=== PATIENT | female | born 1960 | race Caucasian/White ===

== ENCOUNTER → 2020-08-02 09:41 | Outpatient (CLI) | payer OTHER, SELFPAY ==
--- NOTE | 2020-08-02 | DI.US.S_ITS ---
PROCEDURE: US PELVIC COMPLETE INDICATIONS: POSTMENOPAUSAL BLEEDING TECHNIQUE: Real-time scanning was performed of the pelvic organs, with image documentation. Additional endovaginal scanning was necessary due to incomplete visualization of the adnexal and endometrial structures by transabdominal scanning. COMPARISON: None. FINDINGS: Transabdominal scanning: Limited scanning through the kidneys shows no hydronephrosis. No pathologic free abdominal or pelvic fluid. Endovaginal scanning: Uterus: Uterus is normal in size at 4.7 x 5.0 x 9.5 cm, retroverted. The endometrium measures 8.1 mm in combined thickness. Ovaries: Right over for ectomy approximately 20 years ago, left ovary appears normal measuring 2.1 x 2.0 x 23.7 cm. IMPRESSION: Prior right oophorectomy. Normal appearing uterus and endometrial lining, normal-appearing left ovary. Dictated by: Maurizio Olivarez M.D. on 08/02/2020 at 13:05 Approved by: Maurizio Olivarez M.D. on 08/02/2020 at 13:06
== END ==
PROVIDERS: PCP Student in an Organized Health Care Education/Training Program; Referring Provider Student in an Organized Health Care Education/Training Program; Visit Provider Student in an Organized Health Care Education/Training Program
DX: N95.0 Postmenopausal bleeding (principal); Z90.721 Acquired absence of ovaries, unilateral
CPT/HCPCS: 76856

== ENCOUNTER → 2020-12-26 16:17 | Outpatient (CLI) | payer OTHER, SELFPAY ==
[2020-12-26] MEDS: COVID-19 VACC #1, MRNA(MOD) 100 MCG/0.5 ML VIAL IM (16:22)
== END ==
PROVIDERS: PCP Student in an Organized Health Care Education/Training Program; Visit Provider Internal Medicine
DX: Z23 Encounter for immunization (principal)
CPT/HCPCS: 0011A; 91301

== ENCOUNTER → 2021-01-24 15:04 | Outpatient (CLI) | payer OTHER, SELFPAY ==
[2021-01-24] MEDS: COVID-19 VACC #2, MRNA(MOD) 100 MCG/0.5 ML VIAL IM (15:10)
== END ==
PROVIDERS: PCP Student in an Organized Health Care Education/Training Program; Visit Provider Internal Medicine
DX: Z23 Encounter for immunization (principal)
CPT/HCPCS: 0012A; 91301

== ENCOUNTER 2023-07-15 16:05 | Emergency (ER) | payer OTHER, SELFPAY ==
[2023-07-15] VITALS (73 sets, daily range): BP systolic 104–173; BP diastolic 55–100; PULSE 72–109; RESP 8–45; TEMP 36.5; O2SAT 92–100
--- NOTE | 2023-07-15 16:16 | DI.RAD.S_ITS ---
PROCEDURE: XR ANKLE LT 2V INDICATIONS: fall, gross deformity, left ankle TECHNIQUE: 3 views of the ankle were acquired. COMPARISON: None. FINDINGS: Bones: Comminuted fractures in the distal tibia and fibula. Medial malleolar fracture with medial/anterior subluxation of the tibia over the dome of the talus by almost 1 bone diameter. Vertical posterior tibial metaphyseal fracture as well as oblique distal fibular fracture Soft tissues: No tibiotalar joint effusion. Achilles tendon appears normal. IMPRESSION: Comminuted trimalleolar fracture dislocation with complete ankle mortise disruption Approved by: Suhail Cunningham M.D. on 07/15/2023 at 17:29
--- NOTE | 2023-07-15 16:42 | ED.LOWEXIN ---
HPI - Extremity Injury (Lower) General Chief Complaint: Extremity Injury, Lower Stated Complaint: Fall Time Seen by Provider: 07/15/23 16:39 Source: patient and EMS Mode of arrival: EMS History of Present Illness HPI Narrative: 63-year-old female presents for ankle injury. Patient was hiking when she slipped and fell. Gross deformity noted, palpable pedal pulses, intact sensation. Patient denies hitting her head, denies loss of consciousness, denies use of blood thinners. Related Data Home Medications Medication Instructions Recorded Confirmed cholecalciferol (vitamin D3) 25 1,000 unit PO QDAY #0 tabs 04/16/16 mcg (1,000 unit) tablet (Vitamin D3) [VEGAN OMEGA 3] PO QDAY ##0 05/13/17 Previous Rx's Medication Instructions Recorded bupropion HCl 200 mg tablet,12 hr 200 mg PO BID #60 tabs 05/13/17 sustained-release gabapentin 300 mg capsule 300 mg PO TID #30 caps 07/15/23 methocarbamol 500 mg tablet 500 mg PO QID #30 tabs 07/15/23 oxycodone-acetaminophen 5 mg-325 1 tab PO Q4H PRN pain #20 tabs 07/15/23 mg tablet (Percocet) Allergies Allergy/AdvReac Type Severity Reaction Status Date / Time duloxetine [DULOXETINE] AdvReac Intermediate Caused Verified 07/15/23 18:41 anxiety and paranoia Review of Systems Review of Systems Narrative: Negative except as noted above Patient History Surgical History (Updated 01/19/18 @ 05:02 by Mirta Cole PA-C) History of bilateral salpingo-oophorectomy (BSO) Status post cholecystectomy Family History (Updated 05/16/17 @ 00:00 by Conversion Provider) Brother Mental health problem Mother Age: 96 Type 2 diabetes mellitus Hypothyroidism Hypertension Sleep apnea Social History Smoking Status: Never smoker Smoking Status: Never smoker alcohol intake frequency: 0-2 drinks per day Substance Use Type: does not use Exam Initial Vital Signs Initial Vital Signs: Vital Signs Temperature 97.7 F 07/15/23 16:12 Pulse Rate 72 07/15/23 16:12 Respiratory Rate 14 07/15/23 16:12 Blood Pressure 137/100 H 07/15/23 16:12 Pulse Oximetry 99 07/15/23 16:12 Oxygen Delivery Method Room Air 07/15/23 16:12 Const: Awake, alert, no acute distress, nontoxic appearing Eyes: PERRL, EOMI, conjunctiva normal ENT: Atraumatic, dentition normal, mucous membranes moist Cardiac: regular rate, regular rhythm RESP: unlabored, clear bilaterally, no wheezing GI: Atraumatic, soft, nontender, nondistended, no rebound, no guarding MSK: Gross deformity left ankle, able to wiggle toes, sensation intact, DP pulses palpable Skin: Warm, Dry, intact, no rashes Neuro: AO x3, CN II-XII grossly intact, moves all extremities Psych: affect normal, mood normal, not suicidal, not homicidal Procedures Orthopedic Fracture Reduction Fracture #1: Side: left Fracture Reduction Location: other (ankle) Technique: direct manipulation and traction/counter-traction Post Reduction X-rays Demonstrate: anatomical reduction Post-reduction neuro exam: intact Post-reduction vascular exam: intact Splint Applied: Yes Patient Tolerated Procedure: Well Orthopedic Joint Reduction Joint #1: Time Out Performed: Yes Side: left Joint Reduction Location: ankle Analgesia: procedural sedation Post-reduction neuro exam: intact Post-reduction vascular: intact Post Reduction X-Ray Obtained: Yes Post Reduction X-Ray Results: reduced Splint Applied: Yes Patient Tolerated Procedure: Well and No complications Procedural Sedation Consent signed: Yes Time out performed: Yes Indication: fracture/dislocation reduction ASA Class: II Mallampati Airway Classification: Class III Time of Last PO Intake: 12:00 Preparation: monitoring analyst applied, pulse oximeter, supplemental O2 applied, suction/airway equipment at bedside and IV secured Ketamine: IV Ketamine dose (mg): 150 ED Sedation Level: Moderate (Concious) Patient Tolerated Procedure: Well Complications: Respiratory Depression-Repositioning Required Interventions: Airway repositioned and Assist by BVM Additional Comments: Tolerated procedure well Course Orders Ordered: Discontinued Medications Sodium Chloride (Normal Saline 0.9%) 1,000 mls @ 1,000 mls/hr IV BOLUS ONE Stop: 07/15/23 17:39 Last Infusion: 07/15/23 18:42 Dose: Infused Documented By: Admin: 07/15/23 17:20 Dose: 1,000 mls/hr Documented By: KEYANA Sodium Chloride (Normal Saline 0.9%) 1,000 mls @ 1,000 mls/hr IV BOLUS ONE Stop: 07/15/23 22:07 Last Infusion: 07/15/23 22:15 Dose: Infused Documented By: Admin: 07/15/23 21:15 Dose: 1,000 mls/hr Documented By: PEGGY Ketamine HCl (Ketamine 500 Mg/5 Ml Inj) 100 mg IV NOW ONE Stop: 07/15/23 16:41 Last Admin: 07/15/23 18:14 Dose: Not Given Documented By: KEYANA Ketamine HCl (Ketamine 500 Mg/5 Ml Inj) 150 mg IV NOW ONE Stop: 07/15/23 18:12 Last Admin: 07/15/23 17:48 Dose: 150 mg Documented By: KEYANA Morphine Sulfate (Morphine 4 Mg/Ml Inj) 4 mg IV NOW ONE Stop: 07/15/23 16:41 Last Admin: 07/15/23 17:20 Dose: 4 mg Documented By: KEYANA Ondansetron HCl (Ondansetron 4 Mg/2 Ml Inj) 4 mg IV NOW ONE Stop: 07/15/23 20:25 Last Admin: 07/15/23 20:15 Dose: 4 mg Documented By: PEGGY Vital Signs Vital signs: Vital Signs - 8 hr 07/15/23 16:12 07/15/23 17:24 07/15/23 17:24 Temperature 97.7 F Pulse Rate 72 76 Respiratory Rate 14 18 Blood Pressure 137/100 H 147/74 H Pulse Oximetry 99 96 Oxygen Delivery Method Room Air Room Air Oxygen Flow Rate 07/15/23 17:25 07/15/23 17:30 07/15/23 17:30 Temperature Pulse Rate 77 88 Respiratory Rate 12 26 H Blood Pressure 113/75 Pulse Oximetry 100 93 Oxygen Delivery Method Oxygen Flow Rate 07/15/23 17:35 07/15/23 17:40 07/15/23 17:40 Temperature Pulse Rate 76 74 Respiratory Rate Blood Pressure 124/66 Pulse Oximetry 100 98 Oxygen Delivery Method Room Air Oxygen Flow Rate 07/15/23 17:45 07/15/23 17:45 07/15/23 17:50 Temperature Pulse Rate 77 Respiratory Rate 21 Blood Pressure 139/67 148/71 H Pulse Oximetry 100 Oxygen Delivery Method Room Air Oxygen Flow Rate 07/15/23 17:50 07/15/23 17:51 07/15/23 17:51 Temperature Pulse Rate 95 H 99 H Respiratory Rate 18 16 Blood Pressure 147/70 H Pulse Oximetry 100 100 Oxygen Delivery Method Oxygen Flow Rate 07/15/23 17:55 07/15/23 17:55 07/15/23 18:00 Temperature Pulse Rate 106 H Respiratory Rate 11 L Blood Pressure 157/75 H 132/67 Pulse Oximetry 100 Oxygen Delivery Method Oxygen Flow Rate 07/15/23 18:00 07/15/23 18:05 07/15/23 18:05 Temperature Pulse Rate 109 H 106 H Respiratory Rate 16 10 L Blood Pressure 142/66 H Pulse Oximetry 100 100 Oxygen Delivery Method Oxygen Flow Rate 07/15/23 18:10 07/15/23 18:10 07/15/23 18:15 Temperature Pulse Rate 100 H 94 H Respiratory Rate 13 11 L Blood Pressure 138/63 Pulse Oximetry 100 100 Oxygen Delivery Method Nasal Cannula Oxygen Flow Rate 2 07/15/23 18:15 07/15/23 18:20 07/15/23 18:20 Temperature Pulse Rate 89 Respiratory Rate 10 L Blood Pressure 137/65 138/67 Pulse Oximetry 100 Oxygen Delivery Method Oxygen Flow Rate 07/15/23 18:25 07/15/23 18:25 07/15/23 18:30 Temperature Pulse Rate 90 Respiratory Rate 9 L Blood Pressure 136/67 140/67 Pulse Oximetry 100 Oxygen Delivery Method Oxygen Flow Rate 07/15/23 18:30 07/15/23 18:35 07/15/23 18:35 Temperature Pulse Rate 86 86 Respiratory Rate 10 L 10 L Blood Pressure 131/61 Pulse Oximetry 100 100 Oxygen Delivery Method Oxygen Flow Rate 07/15/23 18:40 07/15/23 18:40 07/15/23 18:45 Temperature Pulse Rate 87 86 Respiratory Rate 22 10 L Blood Pressure 117/57 L Pulse Oximetry 100 100 Oxygen Delivery Method Oxygen Flow Rate 07/15/23 18:45 07/15/23 18:50 07/15/23 18:50 Temperature Pulse Rate 82 Respiratory Rate 23 Blood Pressure 125/60 123/58 L Pulse Oximetry 100 Oxygen Delivery Method Oxygen Flow Rate 07/15/23 18:55 07/15/23 18:55 07/15/23 19:00 Temperature Pulse Rate 83 Respiratory Rate 23 Blood Pressure 121/58 L 121/59 L Pulse Oximetry 100 Oxygen Delivery Method Oxygen Flow Rate 07/15/23 19:00 07/15/23 19:05 07/15/23 19:05 Temperature Pulse Rate 81 81 Respiratory Rate 10 L 19 Blood Pressure 128/63 Pulse Oximetry 100 97 Oxygen Delivery Method Oxygen Flow Rate 07/15/23 19:10 07/15/23 19:10 07/15/23 19:15 Temperature Pulse Rate 83 Respiratory Rate 12 Blood Pressure 118/56 L 111/57 L Pulse Oximetry 95 Oxygen Delivery Method Oxygen Flow Rate 07/15/23 19:15 07/15/23 19:20 07/15/23 19:20 Temperature Pulse Rate 82 83 Respiratory Rate 10 L 26 H Blood Pressure 106/58 L Pulse Oximetry 98 97 Oxygen Delivery Method Room Air Oxygen Flow Rate MDM - Extremity Injury (Lower) Differential Diagnosis Differential diagnosis: Likely ankle sprain and strain, fracture of toe and ankle fracture Lab Data 07/15/23 17:13 07/15/23 17:13 Labs: Lab Results 07/15/23 Range/Units 17:13 WBC Cancelled RBC Cancelled Hgb Cancelled Hct Cancelled MCV Cancelled MCH Cancelled MCHC Cancelled RDW Cancelled Plt Count Cancelled Neut % (Auto) Cancelled Lymph % (Auto) Cancelled Elbert % (Auto) Cancelled Eos % (Auto) Cancelled Baso % (Auto) Cancelled Neut # (Auto) Cancelled Lymph # (Auto) Cancelled Elbert # (Auto) Cancelled Eos # (Auto) Cancelled Baso # (Auto) Cancelled Sodium Cancelled Potassium Cancelled Chloride Cancelled Carbon Dioxide Cancelled BUN Cancelled Creatinine Cancelled Estimated GFR Cancelled BUN/Creatinine Ratio Cancelled Glucose Cancelled Calcium Cancelled Total Bilirubin Cancelled AST Cancelled ALT Cancelled Alkaline Phosphatase Cancelled Total Protein Cancelled Albumin Cancelled Globulin Cancelled Albumin/Globulin Ratio Cancelled Point of Care Testing Test Results Not applicable MDM Narrative Medical decision making narrative: Ankle fracture. Neurovascularly intact. Patient lives alone but says she has friends who can come visit her and help her with her needs. Fracture reduced per procedure notes. DC with ortho follow up and pain medications. Discharge Plan Departure Patient Disposition: Home Clinical Impression: Ankle fracture Instructions: DI for Ankle Fracture, DI for Moderate Sedation Prescriptions: New oxycodone-acetaminophen [Percocet] 5-325 mg tablet 1 tab PO Q4H PRN (Reason: pain) Qty: 20 0RF methocarbamol 500 mg tablet 500 mg PO QID Qty: 30 0RF gabapentin 300 mg capsule 300 mg PO TID Qty: 30 0RF No Action cholecalciferol (vitamin D3) [Vitamin D3] 1,000 UNIT tablet 1,000 unit PO QDAY Qty: 0 [VEGAN OMEGA 3] PO QDAY Qty: 0 bupropion HCl 200 MG tablet extended release 12 hr 200 mg PO BID Qty: 60 3RF Referrals: Aury Marie MD [Primary Care Provider] - Charissa Morales MD [Physician] - Stand Alone Forms: Patient Portal/API
[2023-07-15] MEDS: MORPHINE 4 MG/ML INJ IV (17:20)
[2023-07-15] MEDS: SODIUM CHLORIDE 0.9% 1,000 ML 1000 ML IV ×2 (17:20→21:15)
[2023-07-15] MEDS: KETAMINE 500 MG/5 ML INJ 150 MG IV (17:48)
--- NOTE | 2023-07-15 17:55 | DI.RAD.S_ITS ---
PROCEDURE: XR ANKLE LT MIN 3V INDICATIONS: post reduction TECHNIQUE: 3 views of the ankle were acquired. COMPARISON: [facility], CR, XR ANKLE LT 2V, 07/15/2023, 16:18. FINDINGS: Bones: On this post reduction study, there is improved anatomic alignment of known trimalleolar fracture. Soft tissues: Soft tissue swelling is seen. The overlying casting material limits evaluation of fine detail. IMPRESSION: Improved anatomic alignment on this post reduction study. Dictated by: Cristofer Guthrie M.D. on 07/15/2023 at 18:26 Approved by: Cristofer Guthrie M.D. on 07/15/2023 at 18:27
--- NOTE | 2023-07-15 20:00 | PC.NURSE ---
Pt became pale & nauseous when sitting on edge bed. Unable to crutch teach. Pt returned to bed.
[2023-07-15] MEDS: ONDANSETRON 4 MG/2 ML INJ IV (20:15)
--- NOTE | 2023-07-15 22:00 | PC.NURSE ---
Pt able to stand with assistance & crutch walk 5 ft. Very unstable & required max assist to return to bed.
--- NOTE | 2023-07-16 07:59 | PC.NURSE ---
care assumed at shift change, pt awake, alert, verbalized understanding of dc/fu instructions and prescriptions. currently reports 09/30 discomfort, offered ice packs, declined. offered posisble PT consult, declined. educated on importance of calling for assistance, pt verbalized understanding. pt able to stand and pivot independently into wheelchair for escort out to front, friends coming to take her home. left ed with all belongings in nad.
== END 2023-07-16 08:00 | disposition home or self-care (01) ==
PROVIDERS: Emergency Provider Emergency Medicine; PCP Student in an Organized Health Care Education/Training Program
DX: S82.852A Displaced trimalleolar fracture of left lower leg, initial encounter for closed fracture (principal); W01.0XXA Fall on same level from slipping, tripping and stumbling without subsequent striking against object, initial encounter
CPT/HCPCS: 27752; 73600; 73610; 96361; 96374; 96375; 99152; 99284; 99285; J2270; J2405

== ENCOUNTER → 2023-07-21 15:48 | Outpatient (CLI) | payer OTHER, SELFPAY ==
--- NOTE | 2023-07-21 | DI.CT.S_ITS ---
PROCEDURE: CT LE LT W CON INDICATIONS: Displaced trimalleolar fracture of left lower leg, initial e TECHNIQUE: Noncontrast 1-1.5 mm axial sections acquired from above the tibiotalar joint to the bottom of the calcaneus, with coronal and sagittal reformats. COMPARISON: [facility], CR, XR ANKLE LT 2V, 07/15/2023, 16:18. [facility], CR, XR ANKLE LT MIN 3V, 07/15/2023, 17:57. FINDINGS: Image quality: Excellent. Bones: Again noted is acute comminuted oblique fracture through distal fibular shaft with up to 6 mm diastasis at distal fibular shaft fracture site. Minimal anterior and medial displacement of a few small fractured fragments adjacent to fracture site is seen. There is also an oblique fracture involving posterior lateral aspect of distal tibial shaft extending to posterior distal tibial plafond. Comminuted fracture involving lateral malleolus is noted with anterior and distal displacement at fracture site and up to 5 mm diastasis. No other fracture or dislocation is seen. No suspicious bony lesions. Soft tissues: There is widening of both medial and lateral ankle mortise. No dislocation. Diffuse soft tissue swelling surrounding distal lower leg, around midfoot and hindfoot is seen. No gross discrete drainable fluid collection is noted. No abnormal calcifications are seen. No gross full-thickness ankle tendon rupture. IMPRESSION: 1. Acute comminuted and slightly displaced trimalleolar fracture as described in detail above. No dislocation is seen on the current study. Disruption of medial and lateral ankle mortise suggestive of ankle ligament injury. 2. Moderate joint effusion and diffuse soft tissue swelling around ankle joint. No abnormal soft tissue calcifications. No gross full-thickness ankle tendon rupture. Dictated by: Jewel Baugh M.D. on 07/21/2023 at 17:38 Approved by: Jewel Baugh M.D. on 07/21/2023 at 19:30
== END ==
PROVIDERS: PCP Registered Nurse; Referring Provider Orthopaedic Surgery Foot and Ankle Surgery; Visit Provider Orthopaedic Surgery Foot and Ankle Surgery
DX: S82.852A Displaced trimalleolar fracture of left lower leg, initial encounter for closed fracture (principal); M25.472 Effusion, left ankle; X58.XXXA Exposure to other specified factors, initial encounter
CPT/HCPCS: 73700

== ENCOUNTER 2023-07-23 09:41 | Day surgery (SDC) | payer OTHER, SELFPAY ==
--- NOTE | 2023-07-23 | DI.RAD.S_ITS ---
PROCEDURE: XR ANKLE LT 2V INDICATIONS: LEFT ANKLE TECHNIQUE: Multiple intraoperative spot views of the ankle were acquired. COMPARISON: [facility], , XR ANKLE LT MIN 3V, 07/15/2023, 17:57. FINDINGS: Bones: Intraoperative imaging demonstrates ORIF of the medial and lateral malleoli. Widening of the medial ankle mortise. Soft tissues: No tibiotalar joint effusion. Achilles tendon appears normal. IMPRESSION: Intraoperative imaging as above. Dictated by: Edgard Anderson M.D. on 07/23/2023 at 15:22 Approved by: Edgard Anderson M.D. on 07/23/2023 at 15:23
--- NOTE | 2023-07-23 09:45 | SUR.OPER ---
Supine on padded OR bed, head on pillow, arms secured on padded arm boards at <90 degrees abduction, legs uncrossed, safety belt at thigh, tape over blanket over lower legs.
[2023-07-23 10:00] VITALS: BP 129/75; PULSE 84; RESP 16; TEMP 36.2; O2SAT 100; BMI 36.0
[2023-07-23] MEDS: LACTATED RINGERS 1,000 ML 42 ML IV (10:24)
--- NOTE | 2023-07-23 11:30 | PM.HP.1 ---
History of Present Illness History of Present Illness Date Patient Seen: 07/23/23 Time Patient Seen: : Date of Onset of Symptoms: 07/15/23 Chief complaint: ORIF Left Ankle Fx Narrative: Patient is a 63-year-old female that [place] and [place] a small slope she heard cracks and pops on the way and had a left ankle deformity. She was seen at [facility]. Date of injury was 07/15/2023 she was diagnosed with a left trimalleolar ankle fracture dislocation. She underwent a reduction in the emergency room and was splinted. She was indicated for orthopedic consultation. She is an unstable ankle fracture. CT scan was obtained. She was indicated for open reduction internal fixation to help restore alignment and stability and help reduce the risks of posttraumatic arthritis. [facility] Surgical History History of bilateral salpingo-oophorectomy (BSO) Status post cholecystectomy Family History Brother Mental health problem Mother Age: 96 Type 2 diabetes mellitus Hypothyroidism Hypertension Sleep apnea Social History household members: none Smoking Status: Never smoker alcohol intake: never Meds Home Medications and Allergies Home Medications Medication Instructions Recorded Confirmed Type cholecalciferol (vitamin D3) 25 1,000 unit PO QDAY #0 tabs 04/16/16 07/23/23 History mcg (1,000 unit) tablet (Vitamin D3) [VEGAN OMEGA 3] PO QDAY ##0 05/13/17 History bupropion HCl 200 mg tablet,12 hr 200 mg PO BID #60 tabs 05/13/17 07/23/23 Rx sustained-release gabapentin 300 mg capsule 300 mg PO TID #30 caps 07/15/23 07/23/23 Rx methocarbamol 500 mg tablet 500 mg PO QID #30 tabs 07/15/23 07/23/23 Rx oxycodone-acetaminophen 5 mg-325 1 tab PO Q4H PRN pain #20 tabs 07/15/23 07/23/23 Rx mg tablet (Percocet) Allergies Allergy/AdvReac Type Severity Reaction Status Date / Time duloxetine [DULOXETINE] AdvReac Intermediate Caused Verified 07/23/23 09:58 anxiety and paranoia Review of Systems Review of Systems ROS: Yes All systems reviewed with the patient and are negative except as otherwise documented Exam Vital Signs (past 8 hours): - 07/23/23 10:00 Temperature 97.2 F L Pulse Rate 84 Respiratory Rate 16 Blood Pressure 129/75 Pulse Oximetry 100 Oxygen Delivery Method Room Air Oxygen Delivery Method Room Air Narrative Exam Narrative: Alert oriented female in no acute distress Normocephalic atraumatic Heart regular rate and rhythm Lungs clear to auscultation Left lower extremity is examined splint is removed there is ecchymosis over the lower leg anterior musculature. No blisters. Mild but acceptable edema at the level of the ankle. Palpable dorsalis pedis pulse. No open wounds. There is an abrasion in the popliteal fossa where the long posterior slab from the splint was rubbing. No signs of infection. Calf is soft. Sensation grossly intact to light touch in all distributions. Objective Imaging X-ray left ankle: My impression: There are 2 sets of left ankle x-rays from 07/15/2023 at [facility] 1 a pre reduction injury film that is two views of the ankle demonstrates trimalleolar ankle fracture dislocation with lateral subluxation, dislocation of the talus. And then there is a postreduction splint showing improved alignment with trimalleolar ankle fracture. Assessment & Plan Assessment and plan (1) Trimalleolar fracture of ankle, closed: Status: Acute (2) Fracture dislocation of ankle: Status: Acute Plan The patient is a 63-year-old female with a unstable left ankle fracture. This was a trimalleolar ankle fracture dislocation. She is been indicated for open reduction internal fixation due to the displaced and intra-articular nature of the unstable ankle fracture. We discussed open reduction internal fixation of the fracture, possible syndesmotic fixation. We discussed the risks of surgery The risks and benefits of the procedure have been discussed with the patient and given the opportunity to ask questions. The risks of surgery include but are not limited to infection, malunion, nonunion, persistence of pain, damage to nerves and blood vessels, posttraumatic arthritis, DVT, PE, cardiopulmonary complications and . The patient expressed a thorough understanding of the risks and benefits of surgery and has elected to proceed. Consent was signed today She does not have any family history of blood clots. Aspirin will be her DVT prophylaxis. First 2 weeks we will focus on elevation postop. She will be nonweightbearing for about 6 weeks postop. She may touchdown for balance. She had pain medications for Zofran and for nausea and narcotic oxycodone sent to her pharmacy. She also has gabapentin and a muscle relaxant at home. Quality VTE Deep Vein Thrombosis/Pulmonary Embolism Present on Admission: No
[2023-07-23] MEDS: CEFAZOLIN 2 GM/100 ML PREMIX 100 ML IV (12:53)
--- NOTE | 2023-07-23 13:26 | P.PCN_ITS ---
Peripheral Nerve Block Note Pre-Procedure Reason for block: Attending surgeon request/order for post-op pain management Pre-procedure checklist: Patient examined and chart reviewed, Risks, benefits, alternatives of block discussed, questions answered, Verification of anti- coagulation status, Site confirmed, Timeout performed and Standard ASA monitors applied Consent obtained from: Patient Procedure Date of procedure: 07/23/23 Start Time: 12:23 End Time: 12:28 Performed by: Mery Ventura Sedation - enter dose in comment field: IV Midazolam (mg) (2) and IV Fentanyl (mcg) (100) Location: Pre-Op Position: Lateral Laterality: Left (single shot popliteal nerve block) Sterile Technique: Sterile barrier maintained, Sterile gloves, Mask, Sterile drapes, U/S probe cover, Chloraprep and Betadine Skin Wheal: Lidocaine 2% mL: 1 Gauge: 30 Equipment Single injection - Needle brand, gauge, length: [place], 21 G x 100mm Medications Medications - enter concentration (%) & mL in comment field: Ropivacaine (0.5%, 20mls) Incremental aspiration prior to injection: Yes Ultrasound Reason for Ultrasound: U/S guidance used for needle placement and U/S used to visualize spread of anesthetic Image printed/saved/archived: Yes Limited exam reveals no abnormal findings: Yes Vital signs VS: - 07/23/23 10:00 Temperature 97.2 F L Pulse Rate 84 Respiratory Rate 16 Blood Pressure 129/75 Pulse Oximetry 100 Oxygen Delivery Method Room Air Oxygen Delivery Method Room Air Events Nerve Block Events: Procedure uneventful
[2023-07-23] MEDS: BUPIVACAINE 0.25% (PF) 30 ML, EPINEPHrine 0.15 MG INJ (14:49)
[2023-07-23 15:20] VITALS: BP 118/78; PULSE 82; RESP 12; TEMP 36.5; O2SAT 98
[2023-07-23 15:25] VITALS: BP 133/79; PULSE 77; RESP 13; O2SAT 100
[2023-07-23 15:30] VITALS: BP 137/84; PULSE 78; RESP 12; O2SAT 96
[2023-07-23] MEDS: OXYCODONE IR 5 MG TABLET PO ×2 (15:42→16:18)
[2023-07-23 15:45] VITALS: BP 136/84; PULSE 77; RESP 12; TEMP 36.6; O2SAT 98
--- NOTE | 2023-07-23 15:45 | PM.OP.1 ---
Operative Date/Time/Diagnoses Date of procedure: 07/23/23 Time of procedure: 13:00 Pre-op diagnosis: Left trimalleolar ankle fracture dislocation Syndesmosis disruption left ankle Post-op diagnosis: same Procedure & Clinicians Procedure: Open reduction internal fixation trimalleolar ankle fracture with fixation of posterior lip CPT code 34841 Open reduction internal fixation syndesmosis left ankle CPT code 65230 Same procedure as scheduled: Yes Indications: Patient is a 63-year-old female that sustained a left ankle fracture dislocation with slipping [place] Her Unstable ankle fracture was indicated for open reduction internal fixation. The risks and benefits of the procedure have been discussed with the patient and given the opportunity to ask questions. The risks of surgery include but are not limited to infection, malunion, nonunion, persistence of pain, damage to nerves and blood vessels, posttraumatic arthritis, DVT, PE, cardiopulmonary complications and . The patient expressed a thorough understanding of the risks and benefits of surgery and has elected to proceed. Consent was signed. Surgeon: Mia Wilburn Click Yes if Unassisted: Yes Anesthesia Type: General, Peripheral nerve block and Local Operative Notes Findings: Unstable left ankle trimalleolar fracture, displaced. Unstable syndesmosis Long lateral malleolar fracture was segmental with comminution at the level of the syndesmosis distally. This was fixed with 1x2.7 lag screw and a long 12 hole 1/3 tubular plate from the Arthrex ankle fracture site--nonlocking screws were used proximally and locking screws distally to decrease prominence Posterior malleolus was stabilized with 1x 4.0 cannulated lag screw with a washer. In a direction from posterolateral to anteromedial. Medial malleolus found to be osteoporotic was stabilized with a medial hook plate and 4-0 cannulated screw distally and nonlocking 3.5 screws proximally Due to the extensive involvement of the syndesmosis and comminution anteriorly additional syndesmotic stabilization was obtained with a Arthrex tightrope suture button device. Utilizing the medial arthrotomy from a medial malleolar fracture site there were multiple small fragments of cartilage that were debrided from the joint. No large chondral lesions were visualized. Closure Type: primary Prosthetic devices, grafts, tissues, transplants, or devices: Arthrex 12 hole 1/3 tubular plate 4.0 cannulated screws 2.7 screw 3.5 screws, locking and nonlocking Arthrex medial hook plate Estimated Blood Loss (mL): 30 Blood products transfused: none Tourniquet time (min): 91 Procedure in detail: Patient was seen in the preoperative area the site of surgery marked informed consent can firmed. A regional block was placed by the anesthesia team for postoperative pain control. The patient was taken to the operating room and general anesthetic was administered. Patient was positioned in the lateral decubitus position on the beanbag where a well-padded axillary roll was placed. A well-padded thigh tourniquet was placed in the left side was up. Leg was prepped and draped in the standard sterile fashion a formal time-out procedure was performed confirming the patient's side and site of surgery administration of appropriate preoperative antibiotics. All were in agreement Attention turned to the lateral left ankle. A long posterolateral incision was made just along the posterior border of the fibula. This was taken down through the skin subcutaneous tissues. The fibula fracture was exposed. This was a long segmental fracture with comminution the level of the syndesmosis. The syndesmosis was unstable. Note during the dissection the superficial peroneal nerve was not visualized. Peroneal tendons were retracted posteriorly. Reduction clamps were used to reduce and hold the long fibula fracture. A 12 hole 1 3rd tubular plate from the Arthrex set was then positioned and secured proximally and distally with BB tacks. Length was checked on fluoroscopy. A 2.7 screw was placed in lag fashion across the long oblique part of the segmental fracture. An additional more distal 2.7 lag screw was attempted but did not achieve good bite and was removed. Next more posterior dissection was taken around the back of the tibia to the Volkmann fragment a dental pick and [place] were used to identify this and reduce it. Then a wire for the cannulated screws was placed in a posterior lateral to anteromedial direction holding reduction and this was checked on AP and scrutinized on lateral fluoroscopy. Attention was then returned to the fibula fracture and fixation was completed with nonlocking 3.5 screws proximally and locking 3.5 screws distally to reduce prominence. Distal hole of the level of the syndesmosis was kept open for later syndesmotic fixation. Next attention was turned medially and the foot was gently externally rotated. Separate incision was made medially over the medial malleolus dissection was taken down through the skin subcutaneous tissue. Saphenous vein and nerve were protected and retracted anteriorly. The medial malleolus fracture was identified. Periosteum was cleaned. There was a large flap of periosteum that was interposed in the fracture site. This was removed. The joint was visualized through the fracture. The joint was irrigated. There were multiple small cartilaginous fragments that were removed. No large osteochondral defects were identified. Clamp was placed this was noted to very easily passed through the osteoporotic bone and it was felt that due to the size of the fragment and poor bone quality that screws alone would not be adequate fixation therefore decision was made to use a combination of screw and a medial hook plate. Trajectory for the cannulated screw was placed from the medial malleolus tip across the fracture. Then the small Arthrex medial hook plate was placed and the tines impacted into the medial malleolus. Next a 3.5 screw was placed through the oblong hole and then the K-wire was overdrilled and the 4.0 cannulated screw was placed that further compressed the fracture. This was checked on multiplanar fluoroscopy showing anatomic reduction. Then the plate was finished with additional 3.5 nonlocking screws. Attention was returned to the posterior malleolus fracture which was then overdrilled and fixed with a 4.0 cannulated screw with a washer to act as a 1 hole plate. Syndesmosis fixed with a tight rope through the open hole in the lateral malleolar plate drilled tetra cortically and tightened. At this point the syndesmosis was reduced and was stable to stress testing. Final fluoroscopic images were taken AP, mortise, lateral views demonstrated appropriate alignment and hardware placement. The mortise was stable on stress testing. Tourniquet was released hemostasis was achieved nausea was closed in layers with 2-0 Vicryl 4-0 Monocryl and 2-0 and 3-0 nylon suture. Additional 30 cc of 0.25% Marcaine with epinephrine was infiltrated for local anesthetic. Sterile dressing with Xeroform gauze and Webril were applied. A well-padded splint was placed with posterior and U stirrup splint. Patient was woken from anesthesia and taken to recovery room in good condition there were no immediate complications from this procedure. All counts were correct. Complications: none Post-operative Condition: stable Disposition: PACU Plan for aftercare: Nonweightbearing x6 weeks. May touchdown for balance. Aspirin 325 daily for DVT prophylaxis x6 weeks. Patient has oxycodone for narcotic pain medication postop may also take gabapentin, Tylenol, ibuprofen. Zofran was given for an anti nausea medication. Recommend [id number] stool softeners to avoid constipation. Sutures remain in place 2-4 weeks depending on swelling. Elevate heart level or above for the 1st 2 weeks after surgery to aid with swelling. May ice up to 20 minutes an hour while awake.
[2023-07-23 16:00] VITALS: BP 127/81; PULSE 77; RESP 12; TEMP 36.6; O2SAT 99
[2023-07-23] MEDS: ACETAMINOPHEN 325 MG TABLET 975 MG PO (17:18)
== END 2023-07-23 17:24 | disposition home or self-care (01) ==
PROVIDERS: PCP Registered Nurse; Referring Provider Orthopaedic Surgery Foot and Ankle Surgery; Visit Provider Orthopaedic Surgery Foot and Ankle Surgery
PROC: (CPT 27823; principal; 2023-07-23 10:45)
DX: S82.852A Displaced trimalleolar fracture of left lower leg, initial encounter for closed fracture (principal); S93.432A Sprain of tibiofibular ligament of left ankle, initial encounter; G89.18 Other acute postprocedural pain; W01.0XXA Fall on same level from slipping, tripping and stumbling without subsequent striking against object, initial encounter; Y93.01 Activity, walking, marching and hiking; Y92.832 Beach as the place of occurrence of the external cause
CPT/HCPCS: 27823; 27829; 64450; 73600; 76000; C1713; J0171; J0690; J1100; J2250; J2405; J2704; J3010